=== PATIENT | female | born 1980 | race Caucasian/White ===

== ENCOUNTER 2022-11-04 16:36 | Emergency (ER) | payer OTHER, SELFPAY ==
[2022-11-04 16:45] VITALS: BP 142/92; PULSE 112; O2SAT 97
[2022-11-04 17:50] VITALS: BP 150/100; PULSE 96; RESP 18; TEMP 35.9; O2SAT 98; BMI 21.5
--- NOTE | 2022-11-04 18:27 | MHC.RECOVSUP ---
? Reason for consult RECOVERY SUPPORT o Current location: ED22H o Identified substance use concern: ALCOHOL - Withdrawal - Seeking ATS (detox) - Support ? Intervention: o Community resources provided o Harm reduction discussion ? Plan: o Follow up tomorrow ? Additional information: MET WITH PATIENT AND SHE WANTS DETOX.. i CALLED [facility], AND THEY DID A INTAKE FOR TOMORROW.. INFORMED THE CARE TEAM TO BE PUT ON CHART FOR TOMORROW MORNING..
--- NOTE | 2022-11-04 18:35 | PC.NURSE ---
pt sitting in recliner in 22H, requesting a bed in a room with a TV in it. pt sts last drink was last night, 2 beers, per RN who took report from EMS. Recovery team sts pt will have bed tomorrow morning at [facility].
--- NOTE | 2022-11-04 18:59 | ED_ITS ---
HPI - Alcohol General Chief Complaint: ETOH/Substance Use Stated Complaint: Pt requesting detox Time Seen by Provider: 11/04/22 18:19 Source: patient and other Mode of arrival: EMS History of Present Illness HPI narrative: 22-year-old female who is brought in via EMS and is requesting detox from alcohol, states her last drink was last night and was a couple of beers. Patient is currently housing with another person who is an ex alcoholic and has been trying to help her. This gentleman states that he has been able to get her off of the vodka but she has continue to use beer. Patient states that she feels like she is withdrawing as she is experiencing auditory and visual hallucinations Related Data Allergies Allergy/AdvReac Type Severity Reaction Status Date / Time Penicillins AdvReac Rash Verified 11/04/22 16:47 Review of Systems Review of Systems: Pertinent positives and negatives as stated in HPI [facility] Past Medical History Source: nursing notes reviewed Social History Social History Alcohol intake: current Alcohol intake frequency: 3 or more drinks per day Alcohol type: beer and hard liquor Advance Directives: No Advance Directives Information Provided: No Patient : No Physical Exam ED Vital Signs: Vital Signs - 24 hr 11/04/22 17:50 11/04/22 20:15 11/04/22 22:00 Temperature 96.6 F L 98.4 F 98.2 F Pulse Rate 96 84 74 Respiratory Rate 18 16 16 Blood Pressure 150/100 H 109/82 123/74 Pulse Oximetry 98 98 98 Oxygen Delivery Method Room Air Room Air Room Air BMI result Body Mass Index 21.5 VITAL SIGNS: Reviewed. GENERAL: Mildly unkempt, well nourished, in no acute distress. HEAD: Normocephalic/atraumatic EYES: PERRLA, EOMI EARS: Ext canals without abnormality LUNGS: Normal breath sounds. No adventitious sounds or accessory muscle use. SpO2<98> CARDIOVASCULAR: Regular rate and rhythm without noted murmurs, ABDOMEN: Soft, non-tender, non-distended with bowel sounds. MUSCULOSKELETAL: No tenderness, deformities, or effusions noted on gross inspection. EXTREMITIES: No cyanosis, clubbing or edema. SKIN: Inspection of the skin reveals no rashes NEUROLOGIC: Alert and oriented x 3. Strength and sensation to light touch were grossly intact x 4. Medical Decision Making Medical Decision Making [facility] Narrative: 42-year-old female with history and clinical presentation of alcohol use disorder and history of alcohol withdrawals, CIWA-8 but given symptoms AVH will give 50 mg of Librium. Patient was started on a CIWA assessment every 4 hours and has as needed Librium. Patient was evaluated by the online health and fitness coach and has a bed in the morning at a detox facility. In the event that she begins experiencing significant alcohol withdrawals she may need to be admitted and therefore we are pursuing basic laboratory workup. 2245: Hematologic indices are not significant for leukocytosis or left shift, there is no evidence of anemia or thrombocytopenia. Chemistry indices indicate evidence dehydration a mild lactic acidosis that is likely attributed to patient's alcohol use and will offer water in food. Otherwise liver derange ments are consistent with chronic alcoholism as patient has no abdominal discomfort to suggest a cholecystitis/choledocholithiasis. BAL-undetectable. Signed out to Dr Sevilla to f/u UA if patient produces. Patient placed in physician observation because the patient needed more time for placement in the morning in inpatient detox facility. At the time observation was started the patient's vital signs were stable, patient is alert and oriented but slightly tremulous, neuro: Nonfocal, CV RRR, lungs clear Differential Diagnosis Differential Diagnoses: The differential diagnosis associated with the presentation includes Please see the discussion above Admission/Observation Consideration of admission/observation: Escalation of care including admission/observation considered Please see the discussion above Lab Data [facility] Lab Attestation statement: I reviewed the patient's lab results. Please see the discussion above 11/04/22 20:27 11/04/22 20:27 Labs: Lab Results 11/04/22 11/04/22 11/04/22 Range/Units 20:27 20:27 20:27 WBC 8.0 (4.8-10.8) X10*3/uL RBC 4.31 (4.20-5.50) X10*6/uL Hgb 14.1 (12.0-16.0) g/dl Hct 40.3 (37.0-47.0) % MCV 93.5 (80.0-98.0) fL MCH 32.7 (27.0-33.0) pg MCHC 35.0 (31.0-35.0) g/dl RDW 12.1 (11.0-16.0) % Plt Count 77 L (160-400) X10*3/uL MPV 10.1 (9.4-12.3) fL Immature Gran % (Auto) 0.3 (0.0-0.4) % Neut % (Auto) 69.0 (45-73) % Lymph % (Auto) 17.0 L (20-40) % [place] % (Auto) 12.7 H (2-11) % Eos % (Auto) 0.6 (0-4) % Baso % (Auto) 0.4 (0-2) % Lymph # (Auto) 1.4 (1.2-4.9) X10*3/uL [place] # (Auto) 1.0 (0.1-1.2) X10*3/uL Eos # (Auto) 0.1 (0.0-0.4) X10*3/uL Baso # (Auto) 0.0 (0.0-0.2) X10*3/uL Abs Immat Gran (auto) 0.02 (0.00-0.03) X10*3/uL Absolute Neuts (auto) 5.5 (2.0-8.3) x10*3/uL Absolute Nucleated RBC 0.000 (0.0-0.012) X10*3/uL Nucleated RBC % (auto) 0.0 (0.0-0.2) /100WBC Smear Tech's Comments VERIFIED Sodium 132 L (135-145) mmol/L Potassium 4.1 (3.3-5.1) mmol/L Chloride 95 L (96-108) mmol/L Carbon Dioxide 19 L (22-29) mmol/L Anion Gap 22 H (12-20) BUN 8 L (9-16) mg/dL Creatinine 0.59 (0.5-1.4) mg/dL Estim Creat Clear Calc 106.2 Estimated GFR > 60 Random Glucose 85 (60-115) mg/dL Calcium 9.3 (8.4-10.2) mg/dL Total Bilirubin 1.8 H (0.0-1.0) mg/dL AST 90 H (5-31) U/L ALT 93 H (0-31) U/L Alkaline Phosphatase 80 (39-117) U/L Total Protein 8.1 H (6.5-8.0) g/dL Albumin 4.3 (3.5-5.0) g/dL Beta HCG, Quant < 2 mIU/mL Ethyl Alcohol < 10 mg/dL Chronic Conditions Alcohol abuse Social Determinants Patient?s care significantly limited by Social Determinants of Health including: Alcoholism and drug addiction in family Medications Administered Discontinued Medications Generic Name Dose Route Start Last Admin Trade Name Freq PRN Reason Stop Dose Admin Chlordiazepoxide HCl 50 mg 11/04/22 18:38 11/04/22 19:09 Chlordiazepoxide Hcl 25 Mg Capsule PO 11/04/22 18:39 50 mg ONCE ONE Administration Critical Care Time Critical Care Time Critical Care Time: Yes Total Critical Care Time: 30 Attestation: I personally attest to this time spent taking care of the patient. Discharge Plan Discharge Clinical Impression: Alcohol withdrawal, Alcohol use disorder Patient Disposition: Still a Patient
[2022-11-04] MEDS: chlordiazePOXIDE HCl 25 MG CAPSULE 50 MG PO (19:09)
--- NOTE | 2022-11-04 19:38 | PC.NURSE ---
this RN assumed care of pt at 1900 - pt is sitting in a recliner in 22H. MD Hines came up to me and requested i give pt 50mg po librium as ordered for etoh withdrawal. last drink last night per previous RN. pt talking to self in hallway, reports being diaphoretic, noticeable tremors to hands and fingers. pt denies n/v/d, denies AH/VH despite talking to self, denies anxiety. po librium administered as ordered. will ctm closely
[2022-11-04 20:15] VITALS: BP 109/82; PULSE 84; RESP 16; TEMP 36.9; O2SAT 98
--- NOTE | 2022-11-04 20:19 | MHC.EDTECH ---
Addendum entered by Khoi De Jesus 11/04/22 20:29: PATIENT DID ALLOW STAFF TO GET LABS . Original Note: THIS PCT ASSUMED CARE OF PATIENT AT 1900 ,VITALS SIGN TAKEN ,RN CRISTOBAL IS AWARE THAT PATIENT IS REFUSING BLOOD WORK .
[2022-11-04 20:37] LABS: Imm Gran Abs Auto 0.02 X10*3/uL (0.00-0.03); PLT CLUMP 1; Red Cell Distribution Width 12.1 % (11.0-16.0); SCAN SMEAR FLAG 1
--- NOTE | 2022-11-04 20:37 | MHC.EDTECH ---
PATIENT WAS CHANGE INTO HOSPITAL ATTIRE ,PATIENT WAS GIVEN DINNER ,AND A PITCHER OF NATALIA SCHNEIDER ,PATIENT BELONINGS ARE AT BEDSIDE .
[2022-11-04 20:39] LABS: Basophils Percent Auto 0.4 % (0-2); Eosinophils Absolute Auto 0.1 X10*3/uL (0.0-0.4); Eosinophils Percent Auto 0.6 % (0-4); Hematocrit 40.3 % (37.0-47.0); Hemoglobin 14.1 g/dl (12.0-16.0); Imm Gran Pct Auto 0.3 % (0.0-0.4); Lymphocytes Absolute Auto 1.4 X10*3/uL (1.2-4.9); MANUAL DIFF FLAG SCAN; Mean Corpuscular Hemoglobin 32.7 pg (27.0-33.0); Mean Corpuscular Volume 93.5 fL (80.0-98.0); Mean Platelet Volume 10.1 fL (9.4-12.3); Monocytes Percent Auto 12.7 % (2-11); Neutrophils Absolute Auto 5.5 x10*3/uL (2.0-8.3); Red Blood Count 4.31 X10*6/uL (4.20-5.50)
[2022-11-04 20:45] LABS: Ethanol < 10 mg/dL
[2022-11-04 20:48] LABS: Alanine Aminotransferase 93 U/L (0-31); Albumin Level 4.3 g/dL (3.5-5.0); Alkaline Phosphatase 80 U/L (39-117); Anion Gap 22 (12-20); Aspartate Amino Transferase 90 U/L (5-31); Bilirubin Total 1.8 mg/dL (0.0-1.0); Blood Urea Nitrogen 8 mg/dL (9-16); Calcium 9.3 mg/dL (8.4-10.2); Carbon Dioxide 19 mmol/L (22-29); Chloride 95 mmol/L (96-108); Creatinine Clr Calc Pharmacy 106.2; Estimated Glomerular Filt Rate > 60; Glucose Random 85 mg/dL (60-115); Potassium 4.1 mmol/L (3.3-5.1); Sodium 132 mmol/L (135-145); Total Protein 8.1 g/dL (6.5-8.0)
[2022-11-04 21:04] LABS: Platelet Count 77 X10*3/uL (160-400)
[2022-11-04 21:07] LABS: SLIDE REVIEW VERIFIED
[2022-11-04 21:35] LABS: HCG Quantitative < 2 mIU/mL
[2022-11-04 22:00] VITALS: BP 123/74; PULSE 74; RESP 16; TEMP 36.8; O2SAT 98
--- NOTE | 2022-11-04 22:50 | PC.NURSE ---
pt continues to talk to self having full on conversations with a person who is not there. when asked if pt is hearing voices she denies. denies n/v/d or anxiety. tremors to fingertips/hands have improved with librium administration. pt within view of nurses station. she is in no apparent physical or respiratory distress. will ctm closely.
[2022-11-04 23:43] VITALS: BP 119/72; PULSE 84; RESP 16; TEMP 36.9; O2SAT 98
--- NOTE | 2022-11-04 23:53 | MHC.EDTECH ---
PATIENT URINE SAMPLE COLLECTED AND SENT TO LAB ,PRATEEK FRANCISCO AND NATALIA SCHNEIDER GIVEN ,PATIENT IS COMFORTABLE AT THIS TIME .
[2022-11-05 00:13] LABS: UPreg QC Valid YES; Urine Pregnancy NEGATIVE (NEGATIVE)
[2022-11-05 00:19] LABS: Amphetamine Screen Urine Not Detected (Not Detect); Barbiturates, Urine Not Detected (Not Detect); Benzodiazepines Screen Urine POSITIVE (Not Detect); Cannabinoid Screen Urine Not Detected (Not Detect); Cocaine Screen Urine Not Detected (Not Detect); Fentanyl, urine Not Detected (Not Detect); Opiate Screen Urine Not Detected (Not Detect); Phencyclidine Screen Urine Not Detected (Not Detect)
--- NOTE | 2022-11-05 01:38 | PC.NURSE ---
patient asleep comfortably on stretcher. respirations even and unlabored in no apparent distress. will ctm
[2022-11-05 02:00] VITALS: BP 125/81; PULSE 84; RESP 16; TEMP 36.3; O2SAT 98
[2022-11-05 04:00] VITALS: BP 133/80; PULSE 76; RESP 16; TEMP 36.2; O2SAT 98
--- NOTE | 2022-11-05 04:10 | MHC.EDTECH ---
0400 ROUNDING DONE ,VITALS SIGN TAKEN ,PT AWAKE SITTING UP IN BED HAVING SOME JUICE ,NO APPARENT DISTRESS .
[2022-11-05 06:00] VITALS: BP 140/62; PULSE 72; RESP 18; TEMP 36.8; O2SAT 98
[2022-11-05] MEDS: chlordiazePOXIDE HCl 25 MG CAPSULE 50 MG PO ×2 (09:41→14:06)
--- NOTE | 2022-11-05 09:43 | PC.NURSE ---
Pt Alert, self dialoguing, denies hearing voices or any pain or discomfort,
--- NOTE | 2022-11-05 10:00 | PC.NURSE ---
Pt calm, continuously self dialoguing and laughing, Pt asked if she is hearing voices and she stated No, I always talk to myself, this is normal.
--- NOTE | 2022-11-05 10:05 | MHC.RECOVRN ---
Message left with [facility] retail warehouse supervisor, Brandie Byrnes, awaiting notification on ATS admission time.
--- NOTE | 2022-11-05 10:26 | PC.NURSE ---
PT HAS BEEN HYPER VERBAL SINCE ADMISSION YESTERDAY, DID NOT SLEEP OVER NIGHT. THIS RN FELT LIKE THIS MAY BE A PSYCHOTIC BREAK, DISCUSSED WITH PROVIDER AND AGREES WILL OBTAIN CARE TEAM CONSULT. PT HAS BEEN MOVED TO ED3
[2022-11-05 10:42] LABS: Appearance Urine Cloudy; Glucose Urine UA Negative (Negative); Leukocyte Esterase Urine Small (1+) (Negative); Nitrite Urine Positive (Negative); PH 6.5 (5.0-9.0); Specific Gravity - Urine >= 1.030 (1.005-1.025); UMIC TRIGGER UACC YES; Urine Blood Trace (Negative); Urine Ketones 40 mg/dL (Negative); Urine Protein 30 (1+) mg/dL (Neg-Trace)
[2022-11-05 10:43] LABS: Color Urine Dark Yellow
[2022-11-05 10:52] LABS: Bacteria Urine 2+ (None Seen); Hyaline Casts Urine 0-2 /LPF (0-2); UACC Culture Trigger YES; WBC Urine 0-5 /HPF (0-5)
[2022-11-05 12:14] VITALS: BP 124/83; PULSE 76; RESP 18; O2SAT 98
--- NOTE | 2022-11-05 17:02 | PC.NURSE ---
Beatriz arrived to the ED seeking a detox bed. She was transferred to the POD after she continues to self-dialogue. Beatriz reports she has been homeless for 20+ years. Self dialoguing is baseline and she reports she has been on no medications since she was started on Risperidone after a section 35 last year, she reports she stopped the medication after discharge. A bed was secured at [facility] through [facility]. Beatriz then decided she did not want the bed and refused further care. ordered discharge, belongings returned and discharge paperwork signed. Beatriz was given the number for intake at [facility] and encouraged to call if she changed her mind.
== END 2022-11-05 17:09 | disposition home or self-care (01) ==
PROVIDERS: Physician Assistant Medical; Student in an Organized Health Care Education/Training Program; Emergency Provider Emergency Medicine
DX: F10.130 Alcohol abuse with withdrawal, uncomplicated (principal); R44.0 Auditory hallucinations; Y90.0 Blood alcohol level of less than 20 mg/100 ml; E87.20 Acidosis, unspecified; R25.1 Tremor, unspecified
CPT/HCPCS: 36415; 80053; 80307; 81001; 81025; 84702; 85025; 87086; 99285

== ENCOUNTER 2022-12-03 07:40 | Emergency (ER) | payer OTHER, SELFPAY ==
[2022-12-03] VITALS (7 sets, daily range): BP systolic 118–130; BP diastolic 76–92; PULSE 67–96; RESP 15–16; TEMP 36.7–36.9; O2SAT 94–97; BMI 23.1
--- NOTE | 2022-12-03 07:56 | ED.ALCOHOL ---
HPI - Alcohol General Chief Complaint: ETOH/Substance Use Stated Complaint: WANTS HELP WITH ETOH PER EMS Time Seen by Provider: 12/03/22 07:46 Source: patient, EMS and old records reviewed Mode of arrival: EMS Limitations: no limitations History of Present Illness HPI narrative: 42 yo female with history of ETOH abuse and dependence, history of withdrawal, homelessness who presents to the ER via EMS for evaluation of alcohol detox. She states she has been drinking 2 pints of vodka per day. When she does not drink every day she gets anxious, shaky. She denies other substance use. She last drank vodka this morning. She denies current symptoms of withdrawal. She states history of low magnesium in the past. She states she was recently at [facility] for alcohol abuse. She states her alcoholism is severe and has left her homeless for the last 7 years. She denies SI or HI. No chest pain, abdominal pain, N/V/D. complaint: alcohol intoxication, alcohol dependence and desires rehab Last drink: Hours (ago) Chronic alcohol use: Yes Previous visits for alcohol intoxication: Yes Recent trauma: No Associated symptoms: denies other symptoms Treatments prior to arrival: none Related Data Home Medications Medication Instructions Recorded Confirmed No Known Home Meds 11/05/22 11/05/22 Allergies Allergy/AdvReac Type Severity Reaction Status Date / Time Penicillins AdvReac Rash Verified 11/04/22 16:47 Review of Systems Review of Systems: Yes all other systems are reviewed and are negative [facility] Social History Social History Alcohol intake: current Alcohol intake frequency: 3 or more drinks per day Alcohol type: hard liquor Smoked in Last 30 Days: Yes Use of substances other than those prescribed or required for medical reasons: Yes Substance Use Type: Crack/Cocaine Advance Directives: No Advance Directives Information Provided: No Physical Exam ED Vital Signs: Vital Signs - 24 hr 12/03/22 07:50 12/03/22 08:02 12/03/22 10:45 Temperature 98.4 F Pulse Rate 86 96 74 Respiratory Rate 15 16 16 Blood Pressure 124/92 H 124/92 H Pulse Oximetry 96 Oxygen Delivery Method Room Air 12/03/22 12:39 12/03/22 14:37 12/03/22 15:49 Temperature 98.1 F 98.1 F Pulse Rate 91 96 94 Respiratory Rate 16 16 16 Blood Pressure 118/80 119/81 126/87 Pulse Oximetry 94 96 97 Oxygen Delivery Method Room Air Room Air Room Air BMI result Body Mass Index 23.1 Appearance: Alert. Oriented X3. Poorly kempt, smelly of alcohol Head: normocephalic, atraumatic. Eyes: Right eye with hazy cornea, nonreactive pupil. left eye with normal sclera, conjunctiva and PERRL ENT: Pharynx normal. No tonsillar swelling or exudate. Neck: Normal inspection. Neck supple. CVS: Normal heart rate and rhythm. Pulses normal. Respiratory: No respiratory distress. Breath sounds normal. Abdomen: Soft and nontender. +BS x4 Skin: Skin warm and dry. Normal skin color. Normal skin turgor. No rashes. Extremities: No lower extremity edema. No joint swelling. Neuro/psych: Oriented X 3. No motor deficit. No sensory deficit. CN II-XII intact. Normal speech and cognition. No SI or HI Course Reevaluation(s) Reevaluation #1: Physician observation started at 9am. Patient placed in physician observation because patient is awaiting addition medicine team evaluation for detox from alcohol. At the time observation was started patient's vital signs were stable. Patient is alert and oriented. Neuro exam is non-focal. CV: RRR and lungs are clear. Will continue to monitor. Will check CIWA scores and monitor for withdrawals. Time: 09:03 Reevaluation #2: patient now sober and ambulating independently to the bathroom. she was seen by recovery team - at this time patient would not be accepted to any local detox facilities. she reports inability to walk for the 1st 4-5 days of her withdrawal. she would not pass the intake. she does not want to go to facility far away because she is afraid of cars. discussed these issues with the patient. at this time she is stable for discharge. plan [place] [facility] [place]. comfortable w/ d/c Time: 16:07 Medical Decision Making Medical Decision Making MDM Narrative: 42 yo female with history of alcohol abuse/dependence, history of withdrawal who presents to the ER intoxicated and seeking detox. VSS on arrival. No recent trauma. Labs significant for mild transaminitis c/w mild ETOH hepatitis. normal bilirubin and no RUQ tenderness. hold off on RUQ imaging today CIWA 0. no detox placement available at this time. stable for d/c Differential Diagnosis Differential Diagnoses: The differential diagnosis associated with the presentation includes alcohol intoxication, alcohol withdrawal, polysubstance abuse, substance induced mood disorder Admission/Observation Consideration of admission/observation: Escalation of care including admission/observation considered Lab Data MDM Lab Attestation statement: I reviewed the patient's lab results. 12/03/22 08:11 12/03/22 08:11 Labs: Lab Results 12/03/22 12/03/22 12/03/22 Range/Units 08:11 08:11 09:39 WBC 5.4 (4.8-10.8) X10*3/uL RBC 3.97 L (4.20-5.50) X10*6/uL Hgb 12.9 (12.0-16.0) g/dl Hct 37.3 (37.0-47.0) % MCV 94.0 (80.0-98.0) fL MCH 32.5 (27.0-33.0) pg MCHC 34.6 (31.0-35.0) g/dl RDW 13.7 (11.0-16.0) % Plt Count 85 L (160-400) X10*3/uL MPV 9.0 L (9.4-12.3) fL Immature Gran % (Auto) 0.4 (0.0-0.4) % Neut % (Auto) 50.4 (45-73) % Lymph % (Auto) 30.7 (20-40) % [place] % (Auto) 14.8 H (2-11) % Eos % (Auto) 3.1 (0-4) % Baso % (Auto) 0.6 (0-2) % Lymph # (Auto) 1.7 (1.2-4.9) X10*3/uL [place] # (Auto) 0.8 (0.1-1.2) X10*3/uL Eos # (Auto) 0.2 (0.0-0.4) X10*3/uL Baso # (Auto) 0.0 (0.0-0.2) X10*3/uL Abs Immat Gran (auto) 0.02 (0.00-0.03) X10*3/uL Absolute Neuts (auto) 2.7 (2.0-8.3) x10*3/uL Absolute Nucleated RBC 0.000 (0.0-0.012) X10*3/uL Nucleated RBC % (auto) 0.0 (0.0-0.2) /100WBC Sodium 138 (135-145) mmol/L Potassium 3.4 (3.3-5.1) mmol/L Chloride 100 (96-108) mmol/L Carbon Dioxide 24 (22-29) mmol/L Anion Gap 17 (12-20) BUN 4 L (9-16) mg/dL Creatinine 0.54 (0.5-1.4) mg/dL Estim Creat Clear Calc 111.1 Estimated GFR > 60 Random Glucose 108 (60-115) mg/dL Calcium 9.2 (8.4-10.2) mg/dL Magnesium 1.9 (1.6-2.6) mg/dL Total Bilirubin 0.6 (0.0-1.0) mg/dL Direct Bilirubin 0.3 (0.0-0.5) mg/dL AST 203 H (5-31) U/L ALT 95 H (0-31) U/L Alkaline Phosphatase 136 H (39-117) U/L Total Protein 7.5 (6.5-8.0) g/dL Albumin 4.0 (3.5-5.0) g/dL Urine Color Yellow Urine Appearance Clear Urine pH 6.0 (5.0-9.0) Ur Specific [place] <= 1.005 (1.005-1.025) Urine Protein Negative (Neg-Trace) mg/dL Urine Glucose (UA) Negative (Negative) mg/dL Urine Ketones Negative (Negative) mg/dL Urine Blood Negative (Negative) Urine Nitrite Negative (Negative) Ur Leukocyte Esterase Negative (Negative) Urine Test (NEGATIVE) Urine Opiates Screen (Not Detect) Urine Fentanyl Screen (Not Detect) Ur Barbiturates Screen (Not Detect) Ur Phencyclidine Scrn (Not Detect) Ur Amphetamines Screen (Not Detect) U Benzodiazepines Scrn (Not Detect) Urine Cocaine Screen (Not Detect) U Marijuana (THC) Screen (Not Detect) Ethyl Alcohol 400 H* mg/dL 08/29/23 08/29/23 Range/Units 09:39 09:39 WBC (4.8-10.8) X10*3/uL RBC (4.20-5.50) X10*6/uL Hgb (12.0-16.0) g/dl Hct (37.0-47.0) % MCV (80.0-98.0) fL MCH (27.0-33.0) pg MCHC (31.0-35.0) g/dl RDW (11.0-16.0) % Plt Count (160-400) X10*3/uL MPV (9.4-12.3) fL Immature Gran % (Auto) (0.0-0.4) % Neut % (Auto) (45-73) % Lymph % (Auto) (20-40) % [place] % (Auto) (2-11) % Eos % (Auto) (0-4) % Baso % (Auto) (0-2) % Lymph # (Auto) (1.2-4.9) X10*3/uL [place] # (Auto) (0.1-1.2) X10*3/uL Eos # (Auto) (0.0-0.4) X10*3/uL Baso # (Auto) (0.0-0.2) X10*3/uL Abs Immat Gran (auto) (0.00-0.03) X10*3/uL Absolute Neuts (auto) (2.0-8.3) x10*3/uL Absolute Nucleated RBC (0.0-0.012) X10*3/uL Nucleated RBC % (auto) (0.0-0.2) /100WBC Sodium (135-145) mmol/L Potassium (3.3-5.1) mmol/L Chloride (96-108) mmol/L Carbon Dioxide (22-29) mmol/L Anion Gap (12-20) BUN (9-16) mg/dL Creatinine (0.5-1.4) mg/dL Estim Creat Clear Calc Estimated GFR Random Glucose (60-115) mg/dL Calcium (8.4-10.2) mg/dL Magnesium (1.6-2.6) mg/dL Total Bilirubin (0.0-1.0) mg/dL Direct Bilirubin (0.0-0.5) mg/dL AST (5-31) U/L ALT (0-31) U/L Alkaline Phosphatase (39-117) U/L Total Protein (6.5-8.0) g/dL Albumin (3.5-5.0) g/dL Urine Color Urine Appearance Urine pH (5.0-9.0) Ur Specific [place] (1.005-1.025) Urine Protein (Neg-Trace) mg/dL Urine Glucose (UA) (Negative) mg/dL Urine Ketones (Negative) mg/dL Urine Blood (Negative) Urine Nitrite (Negative) Ur Leukocyte Esterase (Negative) Urine Test NEGATIVE (NEGATIVE) Urine Opiates Screen Not Detected (Not Detect) Urine Fentanyl Screen Not Detected (Not Detect) Ur Barbiturates Screen Not Detected (Not Detect) Ur Phencyclidine Scrn Not Detected (Not Detect) Ur Amphetamines Screen Not Detected (Not Detect) U Benzodiazepines Scrn Not Detected (Not Detect) Urine Cocaine Screen Not Detected (Not Detect) U Marijuana (THC) Screen Not Detected (Not Detect) Ethyl Alcohol mg/dL Independent Historian Clinical information obtained from an independent historian. History obtained from or confirmed by: EMS External Record Review External record reviewed: Outpatient record and Prior outpatient labs Prescription Management I considered prescription management with: Other (benzodiazapine) Chronic Conditions Patient?s care impacted by: Other (alcohol use disorder) Social Determinants Patient?s care significantly limited by Social Determinants of Health including: Inadequate housing, Alcoholism and drug addiction in family, Problems related to primary support group and Other Social Determinant of Health Critical Care Time Critical Care Time Critical Care Time: No Discharge Plan Discharge Clinical Impression: Alcoholic intoxication Patient Disposition: Home, Self-Care Instructions: Alcohol Intoxication (ED), Alcohol Use Disorder (ED) Additional Instructions: do not drink alcohol recommend going to [place] [facility] for resources for housing with [facility] if you develop signs or symptoms of withdrawal, come back to the ER for further evaluation Prescriptions: No Action No Known Home Meds
--- NOTE | 2022-12-03 08:02 | PC.NURSE ---
Addendum entered by Guanaco Harrison 12/03/22 08:05: pt denies cp/sob/n/v/d. Original Note: pt axox3, respirations even and unlabored, vss, sats 96% RA, skin wpd. nsr on monitor 94bpm. pt arrived via ems seeking detox last drink 0700 today; bottle vodka/day. pt states only withdrawal sx tremors. ciwa 1 at this time. security to bedside for mold insert changer. Lorena SANTORO to bedside. pt denies si/hi at this time. awaiting further orders; call byrne within reach.
--- NOTE | 2022-12-03 08:13 | PC.NURSE ---
iv established, labs drawn.
[2022-12-03 08:18] LABS: MANUAL DIFF FLAG NO
[2022-12-03 08:23] LABS: Basophils Percent Auto 0.6 % (0-2); Eosinophils Absolute Auto 0.2 X10*3/uL (0.0-0.4); Eosinophils Percent Auto 3.1 % (0-4); Hematocrit 37.3 % (37.0-47.0); Hemoglobin 12.9 g/dl (12.0-16.0); Imm Gran Abs Auto 0.02 X10*3/uL (0.00-0.03); Imm Gran Pct Auto 0.4 % (0.0-0.4); Lymphocytes Absolute Auto 1.7 X10*3/uL (1.2-4.9); Lymphocytes Percent Auto 30.7 % (20-40); Mean Corpuscular HGB Conc 34.6 g/dl (31.0-35.0); Mean Corpuscular Hemoglobin 32.5 pg (27.0-33.0); Monocytes Absolute Auto 0.8 X10*3/uL (0.1-1.2); Monocytes Percent Auto 14.8 % (2-11); Neutrophils Absolute Auto 2.7 x10*3/uL (2.0-8.3); Neutrophils Percent Auto 50.4 % (45-73); Red Blood Count 3.97 X10*6/uL (4.20-5.50); Red Cell Distribution Width 13.7 % (11.0-16.0); White Blood Count 5.4 X10*3/uL (4.8-10.8)
--- NOTE | 2022-12-03 08:23 | PC.NURSE ---
belongings in locker #11
[2022-12-03 08:24] LABS: Platelet Count 85 X10*3/uL (160-400)
[2022-12-03 08:35] LABS: Alanine Aminotransferase 95 U/L (0-31); Alkaline Phosphatase 136 U/L (39-117); Anion Gap 17 (12-20); Aspartate Amino Transferase 203 U/L (5-31); Bilirubin Direct 0.3 mg/dL (0.0-0.5); Bilirubin Total 0.6 mg/dL (0.0-1.0); Blood Urea Nitrogen 4 mg/dL (9-16); Calcium 9.2 mg/dL (8.4-10.2); Carbon Dioxide 24 mmol/L (22-29); Chloride 100 mmol/L (96-108); Creatinine Clr Calc Pharmacy 111.1; Estimated Glomerular Filt Rate > 60; Ethanol 400 mg/dL; Glucose Random 108 mg/dL (60-115); Magnesium 1.9 mg/dL (1.6-2.6); Potassium 3.4 mmol/L (3.3-5.1); Sodium 138 mmol/L (135-145); Total Protein 7.5 g/dL (6.5-8.0)
[2022-12-03 09:45] LABS: UPreg QC Valid YES
[2022-12-03 09:47] LABS: Appearance Urine Clear; Color Urine Yellow; Glucose Urine UA Negative (Negative); Leukocyte Esterase Urine Negative (Negative); Nitrite Urine Negative (Negative); Specific Gravity - Urine <= 1.005 (1.005-1.025); Urine Blood Negative (Negative); Urine Ketones Negative (Negative); Urine Pregnancy NEGATIVE (NEGATIVE); Urine Protein Negative (Neg-Trace)
[2022-12-03 09:57] LABS: Amphetamine Screen Urine Not Detected (Not Detect); Barbiturates, Urine Not Detected (Not Detect); Benzodiazepines Screen Urine Not Detected (Not Detect); Cannabinoid Screen Urine Not Detected (Not Detect); Cocaine Screen Urine Not Detected (Not Detect); Fentanyl, urine Not Detected (Not Detect); Opiate Screen Urine Not Detected (Not Detect); Phencyclidine Screen Urine Not Detected (Not Detect)
--- NOTE | 2022-12-03 13:11 | PC.NURSE ---
Addendum entered by Guanaco Harrison 12/03/22 13:14: ciwa 0. Original Note: pt calm cooperative in stretcher. requested food and drink. axox4. no changes to previous assessment by this RN.
--- NOTE | 2022-12-03 15:03 | MHC.RECOVSUP ---
Met with pt in ED12 who is here for TAE. Pt reports drinking 1/2 pint of vodka and 5-6 tallboys a day. Pt informs she is homeless and the leads her to drink more, and at this time pt states she isnt able to walk without help and it usually takes her about 5 days of sobriety to be able to walk again. At this time pt is interested in ATS but will not go anywhere not local as she is afraid of car rides. At this time the only local ATS would be [place], however since she is not able to walk on her own she is unable to go. Pt provided resources and encouraged to follow up with [facility] to assist with housing.
--- NOTE | 2022-12-03 17:03 | PC.NURSE ---
pt up for discharge per provider. pt appears tremulous and is vomiting, reporting increased weakness. pt does not feel safe enough to leave due to weakness and tremors. MAUDE Lopez aware and will re-evaluate pt.
[2022-12-03] MEDS: Ondansetron ODT 4 MG TAB.RAPDIS TRANSLINGU (17:15)
[2022-12-03] MEDS: LORazepam 1 MG TABLET 2 MG PO (17:15)
--- NOTE | 2022-12-03 19:42 | MHC.RECOVSUP ---
? Reason for consult:ETOH o? Current location:ED13H? o? Identified substance use concern:? -? Support ? Intervention: o? Community resources provided o? Harm reduction discussion ? Plan:N/A ? Additional information: met with this pt and discussed treatment options, pt declined. provided this pt with recovery resources and contact information incase the pt decides to go to treatment and/or obtain outpatient services.
== END 2022-12-03 19:05 | disposition home or self-care (01) ==
PROVIDERS: Physician Assistant; Emergency Provider Student in an Organized Health Care Education/Training Program; PCP Family Medicine
DX: F10.129 Alcohol abuse with intoxication, unspecified (principal); Y90.8 Blood alcohol level of 240 mg/100 ml or more; Z79.899 Other long term (current) drug therapy; Z71.41 Alcohol abuse counseling and surveillance of alcoholic
CPT/HCPCS: 36415; 80048; 80076; 80307; 81003; 81025; 83735; 85025; 99284